=== PATIENT | female | born 1995 | race Caucasian/White ===

== ENCOUNTER 2016-04-03 22:18 | Emergency (ER) | payer BC ==
[2016-04-03] MEDS ORDERED: Sodium Chloride 0.9% 1000 ML 1,000 ML IV STA (23:46)
[2016-04-03] MEDS ORDERED: Zofran 4 MG/2 ML VIAL IV ONE (23:47)
--- NOTE | 2016-04-03 23:50 | ERPHSYRPT ---
- History of Present Illness Time Seen by Provider: 04/03/16 23:42 Historian: patient Exam Limitations: no limitations Patient Subjective Stated Complaint: NVD X 2-3 DAYS - MALAISE - FEVER/CHILLS Triage Nursing Assessment: AMBULATORY TO TREATEMENT AREA - STEADY GAIT - MOVES ALL EXTREMITIES WITH EQUAL STRENGTH. ALERT/ORIENTED - APPROPRIATE AFFECT. SKIN FLUSHED/HOT/DRY - NO RASH/INJURY. RESPS EASY - NON-LABORED Physician History: This is a 21-year-old white female who arrives with complaint of multiple episodes of vomiting diarrhea symptoms going on for 1-1/2 days she denies fever she does state she's had a cough occasionally for approximately 3 weeks. Past medical history patient has had abnormal Pap smears in the past. Past surgical history cholecystectomy. Timing/Duration: day(s) (1-1/2 days) Activities at Onset: none Quality: other (no pain) Abdominal Pain Onset Location: other (no pain) Pain Radiation: no radiation Severity of Pain-Max: none Severity of Pain-Current: none Modifying Factors: Improves With: vomiting, other (vomiting and diarrhea) Associated Symptoms: diarrhea, nausea, vomiting, No back, No chest pain, No diaphoresis, No fever/chills, No fatigue, No headache, No heartburn, No loss of appetite, No neck pain, No rash, No shortness of breath, No syncope Allergies/Adverse Reactions: amoxicillin Allergy (Verified 04/03/16 23:09) Hx Tetanus, Diphtheria Vaccination/Date Given: Yes Hx Influenza Vaccination/Date Given: No Hx Pneumococcal Vaccination/Date Given: No Immunizations Up to Date: Yes - Review of Systems Constitutional: No Fever, No Chills Eyes: No Symptoms Ears, Nose, & Throat: No Symptoms, No Ear Pain, No Ear Discharge, No Hearing Changes, No Tinnitus, No Nose Pain, No Nose Congestion, No Nose Discharge, No Sinus Drainage, No Epistaxis, No Mouth Pain, No Mouth Swelling, No Loose Teeth, No Throat Pain, No Throat Swelling, No Hoarse, No Painful Swallowing, No Snoring , No Stridor Respiratory: Cough (occasional cough for 3 weeks) Cardiac: No Chest Pain, No Edema, No Syncope Abdominal/Gastrointestinal: Nausea, Vomiting, Diarrhea, No Abdominal Pain, No Constipation, No Hematemesis, No Hematochezia, No Melena, No Dysphagia, No Appetite Changes Genitourinary Symptoms: No Dysuria Musculoskeletal: No Back Pain, No Neck Pain Skin: No Rash Neurological: No Dizziness, No Focal Weakness, No Sensory Changes Psychological: No Symptoms Endocrine: No Symptoms All Other Systems: Reviewed and Negative - Past Medical History Pertinent Past Medical History: No - Past Surgical History Past Surgical History: Yes Gastrointestinal: Cholecystectomy - Social History Smoking Status: Never smoker Exposure to second hand smoke: No Drug Use: none Patient Lives Alone: No - Female History Hx Last Menstrual Period: JANUARY - Nursing Vital Signs Nursing Vital Signs: Initial Vital Signs Temperature 98.7 F Temperature Source Oral Pulse Rate 104 Respiratory Rate 14 Blood Pressure 140/79 Pain Intensity 4 - Physical Exam General Appearance: no apparent distress, alert Eye Exam: PERRL/EOMI, eyes nml inspection Ears, Nose, Throat Exam: normal ENT inspection, pharynx normal, moist mucous membranes Neck Exam: normal inspection, non-tender, supple, full range of motion Respiratory Exam: normal breath sounds, lungs clear, No respiratory distress Cardiovascular Exam: regular rate/rhythm, normal heart sounds Gastrointestinal/Abdomen Exam: soft, No tenderness, No mass Back Exam: normal inspection, normal range of motion, No CVA tenderness, No vertebral tenderness Extremity Exam: normal inspection, normal range of motion, pelvis stable Neurologic Exam: alert, oriented x 3, cooperative, normal mood/affect, nml cerebellar function, sensation nml, No motor deficits Skin Exam: normal color, warm, dry SpO2 Interpretation: normal (99%) SpO2: 99 Oxygen Delivery: Room Air Ordered Tests: Active Orders 24 hr Category Date Time Status IV Insertion STAT Care 04/03/16 23:46 Active AMYLASE Stat Lab 04/03/16 23:50 Completed CBC W DIFF Stat Lab 04/03/16 23:50 Completed CMP Stat Lab 04/03/16 23:50 Completed CULTURE, THROAT Stat Lab 04/03/16 23:55 Received HCG QUALITATIVE,SERUM Stat Lab 04/03/16 23:50 Completed INFLUENZA A+B Stat Lab 04/03/16 23:55 Completed LIPASE Stat Lab 04/03/16 23:50 Completed Manual Differential NC Stat Lab 04/03/16 23:50 Completed STREP SCREEN-BETA A Stat Lab 04/03/16 23:55 Completed UA W/ MICROSCOPIC Stat Lab 04/03/16 00:30 Completed Medication Summary Discontinued Medications Generic Name Dose Route Start Last Admin Trade Name Freq PRN Reason Stop Dose Admin Sodium Chloride 1,000 mls @ 999 mls/hr 04/03/16 23:46 04/03/16 23:58 Sodium Chloride 0.9% 1000 Ml IV 04/04/16 00:46 999 mls/hr .Q1H1M STA Administration Sodium Chloride Confirm 04/03/16 23:54 Sodium Chloride 0.9% 1000 Ml Administered 04/03/16 23:55 Dose 1,000 mls @ ud .ROUTE .STK-MED ONE Ondansetron HCl 4 mg 04/03/16 23:47 04/03/16 23:58 Zofran 4 Mg/2 Ml Vial IV 04/03/16 23:48 4 mg STAT ONE Administration Ondansetron HCl Confirm 04/03/16 23:54 Zofran 4 Mg/2 Ml Vial Administered 04/03/16 23:55 Dose 4 mg .ROUTE .STK-MED ONE Lab/Rad Data: Laboratory Result Diagrams 04/03/16 23:50 04/03/16 23:50 Laboratory Results 04/03/16 04/03/16 04/03/16 Range/Units 23:55 23:50 23:50 WBC (4.0-10.5) K/mm3 RBC (4.1-5.4) M/mm3 Hgb (12.0-16.0) gm/dl Hct (35-47) % MCV (78-100) fl MCH (26-32) pg MCHC (32-36) g/dl RDW (11.5-14.0) % Plt Count (150-450) K/mm3 MPV (6-9.5) fl Segmented Neutrophils (36.0-66.0) % Lymphocytes (Manual) (24-44) % Monocytes (Manual) (0.0-12.0) % Differential Comment Platelet Estimate (NORMAL) Sodium 141 (136-145) mEq/L Potassium 3.7 (3.5-5.1) mEq/L Chloride 105 (98-107) mEq/L Carbon Dioxide 19.3 L (21-32) mEq/L Anion Gap 20.5 H (5-15) MEQ/L BUN 17 (9-20) mg/dL Creatinine 1.04 (0.55-1.30) mg/dl Estimated GFR > 60 ML/MIN Glucose 127 H (70-110) MG/DL Calcium 9.6 (8.5-10.1) mg/dL Total Bilirubin 0.6 (0.2-1.0) mg/dL AST 21 (15-37) U/L ALT 38 (12-78) U/L Alkaline Phosphatase 95 (46-116) U/L Serum Total Protein 8.5 H (6.4-8.2) gm/dL Albumin 4.4 (3.4-5.0) g/dL Amylase 70 (25-115) U/L Lipase 120 (73-393) U/L Serum , Qual NEGATIVE (Negative) Ur Collection Type Urine Color (YELLOW) Urine Appearance (CLEAR) Urine pH (5-6) Ur Specific [place] (1.005-1.025) Urine Protein (Negative) Urine Glucose (UA) (NEGATIVE) mg/dL Urine Ketones (NEGATIVE) Urine Nitrite (NEGATIVE) Urine Bilirubin (NEGATIVE) Urine Urobilinogen (0-1) mg/dL Urine WBC (Auto) (NEGATIVE) Urine RBC (Auto) (0-5) Mac/ul Urine Microscopic RBC (0-2) /HPF Urine Microscopic WBC (0-5) /HPF Ur Epithelial Cells (FEW) /HPF Urine Bacteria (NEGATIVE) /HPF Influenza Type A Ag NEGATIVE (NEGATIVE) Influenza Type B Ag NEGATIVE (NEGATIVE) Streptococcus Screen NEGATIVE (Negative) Specimen Received 04/03/16 04/03/16 Range/Units 23:50 00:30 WBC 12.9 H (4.0-10.5) K/mm3 RBC 5.56 H (4.1-5.4) M/mm3 Hgb 16.4 H (12.0-16.0) gm/dl Hct 48.5 H (35-47) % MCV 87.2 (78-100) fl MCH 29.4 (26-32) pg MCHC 33.8 (32-36) g/dl RDW 13.8 (11.5-14.0) % Plt Count 217 (150-450) K/mm3 MPV 12.2 H (6-9.5) fl Segmented Neutrophils 92 H (36.0-66.0) % Lymphocytes (Manual) 6 L (24-44) % Monocytes (Manual) 2 (0.0-12.0) % Differential Comment NORMAL Platelet Estimate NORMAL (NORMAL) Sodium (136-145) mEq/L Potassium (3.5-5.1) mEq/L Chloride (98-107) mEq/L Carbon Dioxide (21-32) mEq/L Anion Gap (5-15) MEQ/L BUN (9-20) mg/dL Creatinine (0.55-1.30) mg/dl Estimated GFR ML/MIN Glucose (70-110) MG/DL Calcium (8.5-10.1) mg/dL Total Bilirubin (0.2-1.0) mg/dL AST (15-37) U/L ALT (12-78) U/L Alkaline Phosphatase (46-116) U/L Serum Total Protein (6.4-8.2) gm/dL Albumin (3.4-5.0) g/dL Amylase (25-115) U/L Lipase (73-393) U/L Serum , Qual (Negative) Ur Collection Type CLEAN CATCH Urine Color YELLOW (YELLOW) Urine Appearance CLEAR (CLEAR) Urine pH 5.5 (5-6) Ur Specific [place] >=1.030 (1.005-1.025) Urine Protein 30 (Negative) Urine Glucose (UA) NEGATIVE (NEGATIVE) mg/dL Urine Ketones NEGATIVE (NEGATIVE) Urine Nitrite NEGATIVE (NEGATIVE) Urine Bilirubin NEGATIVE (NEGATIVE) Urine Urobilinogen 0.2 (0-1) mg/dL Urine WBC (Auto) NEGATIVE (NEGATIVE) Urine RBC (Auto) TRACE-INTACT (0-5) Mac/ul Urine Microscopic RBC 0-2 (0-2) /HPF Urine Microscopic WBC 0-2 (0-5) /HPF Ur Epithelial Cells FEW (FEW) /HPF Urine Bacteria RARE (NEGATIVE) /HPF Influenza Type A Ag (NEGATIVE) Influenza Type B Ag (NEGATIVE) Streptococcus Screen (Negative) Specimen Received 04/04/16 0030 - Progress Progress: improved Progress Note: 04/04/16 01:19 Patient feeling better. Patient with increased white count and left shift however abdomen is nontender. Labs otherwise essentially normal. Will discharge patient with Zofran. - Departure Time of Disposition: 01:20 Departure Disposition: Home Clinical Impression: Vomiting and diarrhea, Gastroenteritis Condition: Fair Critical Care Time: No Instructions: Vomiting -- Adult, Diarrhea and Traveler's Diarrhea -- Adult Additional Instructions: Return home. Plenty of fluids. Clear fluids only 24-48 hours. Zofran 4 mg orally every 4-6 hours as needed for nausea and vomiting. Follow-up with your family Dr. symptoms are worse, no better in 24-48 hours, or persist longer 72 hours. Return for acute distress or for severe symptoms. Prescriptions: Ondansetron [Zofran Odt] 4 mg PO Q4-6HPRN PRN #10 tab.rapdis PRN Reason: nausea and vomiting
[2016-04-03 23:54] LABS: Mean Cell Volume 87.2 fl (78-100); Mean Platelet Volume 12.2 fl (6-9.5); Platelet Count 217 K/mm3 (150-450); Red Blood Count 5.56 M/mm3 (4.1-5.4); Red Cell Distribution Width 13.8 % (11.5-14.0); White Blood Count 12.9 K/mm3 (4.0-10.5)
[2016-04-03] MEDS ORDERED: Zofran 4 MG/2 ML VIAL ONE (23:54)
[2016-04-03] MEDS ORDERED: Sodium Chloride 0.9% 1000 ML 1,000 ML ONE (23:54)
[2016-04-03 23:56] LABS: Mean Corpuscular Hemoglobin 29.4 pg (26-32)
[2016-04-04 00:22] LABS: ALBUMIN 4.4 g/dL (3.4-5.0); ALKALINE PHOSPHATASE 95 U/L (46-116); ANION GAP 20.5 MEQ/L (5-15); BILIRUBIN,TOTAL 0.6 mg/dL (0.2-1.0); BLOOD UREA NITROGEN 17 mg/dL (9-20); CHLORIDE 105 mEq/L (98-107); Carbon Dioxide 19.3 mEq/L (21-32); Glucose 127 MG/DL (70-110); LIPASE 120 U/L (73-393); Potassium 3.7 mEq/L (3.5-5.1); SGOT/AST 21 U/L (15-37); SGPT/ALT 38 U/L (12-78); SODIUM 141 mEq/L (136-145); Total Protein 8.5 gm/dL (6.4-8.2)
[2016-04-04 00:38] LABS: Total Cells Counted 100
[2016-04-04 00:39] LABS: Platelet Estimate NORMAL (NORMAL)
[2016-04-04 01:07] LABS: COMPLETE URINE MICROSCOPIC? YES; Collection Type CLEAN CATCH; Ph 5.5 (5-6)
[2016-04-04 01:08] LABS: Bacteria RARE /HPF (NEGATIVE); Epithelial Cells FEW /HPF (FEW); WBC 0-2 /HPF (0-5)
[2016-04-04] MEDS ORDERED: ZOFRAN ODT 4 MG PO ONE (01:22)
[2016-04-04] MEDS ORDERED: ZOFRAN ODT 4 MG ONE (01:28)
[2016-04-04 01:44] VITALS: BP 120/80; PULSE 78; O2SAT 100
== END 2016-04-04 01:41 | disposition home or self-care (01) ==
LOC: ED 22:18
DX: R11.2 Nausea with vomiting, unspecified (principal); R19.7 Diarrhea, unspecified
CPT/HCPCS: 36000; 36415; 80053; 81000; 82150; 83690; 84703; 85025; 87070; 87400; 87430; 96374; 99283; J2405; Q0162

== ENCOUNTER 2016-05-22 17:23 | Emergency (ER) | payer BC | END 2016-05-22 18:45 | disposition left against medical advice (07) | LOC: ED 17:23 | DX: Z53.9 Procedure and treatment not carried out, unspecified reason (principal) ==

== ENCOUNTER 2017-03-02 19:59 | Emergency (ER) | payer BC ==
[2017-03-02 20:32] LABS: BASOPHIL % 0.2 % (0.0-0.4); Eosinophil % 2.8 % (0.00-5.0); Granulocytes % 64.3 % (36.0-66.0); Lymphocytes % 25.6 % (24.0-44.0); Mean Corpuscular Hemoglobin 29.9 pg (26-32); Mean Platelet Volume 12.2 fl (6-9.5); Monocytes % 7.1 % (0.0-12.0); Platelet Count 225 K/mm3 (150-450); Red Blood Count 4.38 M/mm3 (4.1-5.4); Red Cell Distribution Width 13.3 % (11.5-14.0); White Blood Count 10.8 K/mm3 (4.0-10.5)
[2017-03-02 20:55] LABS: ADD URINE CULTURE? NO (NO); Bilirubin NEGATIVE (NEGATIVE); Blood NEGATIVE Ery/ul (0-5); COMPLETE URINE MICROSCOPIC? NO; Collection Type CCMS; Glucose NEGATIVE (NEGATIVE); Leukocyte Esterase NEGATIVE (NEGATIVE)
[2017-03-02 21:18] LABS: ALBUMIN 3.4 g/dL (3.4-5.0); ALKALINE PHOSPHATASE 74 U/L (46-116); ANION GAP 14.5 MEQ/L (5-15); BLOOD UREA NITROGEN 13 mg/dL (9-20); CHLORIDE 103 mEq/L (98-107); Carbon Dioxide 24.4 mEq/L (21-32); Glucose 102 MG/DL (70-110); HCG, Quantitative (Inhouse) 29017 IU/L (0-6); Potassium 3.4 mEq/L (3.5-5.1); SGOT/AST 13 U/L (15-37); SGPT/ALT 23 U/L (12-78); SODIUM 139 mEq/L (136-145); Total Protein 7.2 gm/dL (6.4-8.2)
--- NOTE | 2017-03-02 21:40 | ERPHSYRPT ---
- History of Present Illness Time Seen by Provider: 03/02/17 20:02 Source: patient Patient Subjective Stated Complaint: and cramping Triage Nursing Assessment: states and cramping Physician History: CC: abd cramping Hx: 22 y/o patient planning to see Dr Madden for OB. She is early pregnany. Some lower abd cramping today at work. No vaginal bleeding. Normal urination. Mild discharge. No fever. No N/V. All: Amoxil ? 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 [employer] Timing/Duration: today Allergies/Adverse Reactions: amoxicillin Allergy (Verified 05/24/16 01:34) Hx Tetanus, Diphtheria Vaccination/Date Given: Yes Hx Influenza Vaccination/Date Given: No Hx Pneumococcal Vaccination/Date Given: No - Review of Systems Constitutional: No Fever, No Chills Eyes: No Symptoms Ears, Nose, & Throat: No Symptoms Abdominal/Gastrointestinal: Nausea, Vomiting, No Abdominal Pain Genitourinary Symptoms: , Vaginal Discharge (mild), No Dysuria, No Vaginal Bleeding Musculoskeletal: No Back Pain Skin: No Rash Neurological: No Dizziness, No Focal Weakness, No Parasthesia All Other Systems: Reviewed and Negative - Past Medical History Pertinent Past Medical History: Yes - Past Surgical History Past Surgical History: Yes Gastrointestinal: Cholecystectomy - Social History Smoking Status: Never smoker Exposure to second hand smoke: No Drug Use: none Patient Lives Alone: No - Female History Hx Last Menstrual Period: Hx Now: Yes - Nursing Vital Signs Nursing Vital Signs: Initial Vital Signs Temperature 97.9 F 03/02/17 20:28 Pulse Rate 74 03/02/17 20:28 Respiratory Rate 22 03/02/17 20:28 Blood Pressure 121/59 03/02/17 20:28 O2 Sat by Pulse Oximetry 100 03/02/17 20:28 Pain Scale Pain Intensity 5 - Physical Exam General Appearance: alert Eye Exam: PERRL/EOMI Ears, Nose, Throat Exam: normal ENT inspection, moist mucous membranes Neck Exam: normal inspection, non-tender, supple Respiratory Exam: normal breath sounds Cardiovascular Exam: regular rate/rhythm Gastrointestinal/Abdomen Exam: soft, No tenderness, No distention Pelvic Exam: normal external exam, vaginal discharge (mild white, friable cervix , closed) Back Exam: normal inspection Extremity Exam: normal inspection, normal range of motion Neurologic Exam: alert, oriented x 3, cooperative, sensation nml, No motor deficits Skin Exam: warm, dry, No rash SpO2 Interpretation: normal SpO2: 100 Oxygen Delivery: Room Air Procedures - Limited OB Ultrasound Indicators: rule out ectopic Results: + IUP Progress: Transabdominal sonogram per ERMD for abdominal cramping. Single live IUP with FHR 174. AUA 8 + 6 weeks. - Course Nursing assessment & vital signs reviewed: Yes Ordered Tests: Active Orders 24 hr Category Date Time Status Cath for Specimen-Straight STAT Care 03/02/17 20:08 Active Gown/Disrobe Pt STAT Care 03/02/17 20:07 Active IV Insertion STAT Care 03/02/17 20:07 Active Pelvic Exam Assist STAT Care 03/02/17 20:07 Active CBC W DIFF Stat Lab 03/02/17 20:20 Completed CMP Stat Lab 03/02/17 20:20 Completed HCG, Quantitative (Inhouse) Stat Lab 03/02/17 20:20 Completed UA W/RFX UR CULTURE Stat Lab 03/02/17 20:20 Completed Wet Prep Stat Lab 03/02/17 21:40 Completed Lab/Rad Data: Laboratory Result Diagrams 03/02/17 20:20 03/02/17 20:20 Laboratory Results 03/02/17 03/02/17 03/02/17 Range/Units 21:40 20:20 20:20 WBC (4.0-10.5) K/mm3 RBC (4.1-5.4) M/mm3 Hgb (12.0-16.0) gm/dl Hct (35-47) % MCV (78-100) fl MCH (26-32) pg MCHC (32-36) g/dl RDW (11.5-14.0) % Plt Count (150-450) K/mm3 MPV (6-9.5) fl Gran % (36.0-66.0) % Lymphocytes % (24.0-44.0) % Monocytes % (0.0-12.0) % Eosinophils % (0.00-5.0) % Basophils % (0.0-0.4) % Basophils # (0-0.4) Sodium 139 (136-145) mEq/L Potassium 3.4 L (3.5-5.1) mEq/L Chloride 103 (98-107) mEq/L Carbon Dioxide 24.4 (21-32) mEq/L Anion Gap 14.5 (5-15) MEQ/L BUN 13 (9-20) mg/dL Creatinine 0.91 (0.55-1.30) mg/dl Estimated GFR > 60 ML/MIN Glucose 102 (70-110) MG/DL Calcium 9.1 (8.5-10.1) mg/dL Total Bilirubin 0.10 L (0.2-1.0) mg/dL AST 13 L (15-37) U/L ALT 23 (12-78) U/L Alkaline Phosphatase 74 (46-116) U/L Serum Total Protein 7.2 (6.4-8.2) gm/dL Albumin 3.4 (3.4-5.0) g/dL Beta HCG, Quant 78398 H (0-6) IU/L Ur Collection Type Urine Color (YELLOW) Urine Appearance (CLEAR) Urine pH (5-6) Ur Specific [place] (1.005-1.025) Urine Protein (Negative) Urine Ketones (NEGATIVE) Urine Blood (0-5) Mac/ul Urine Nitrite (NEGATIVE) Urine Bilirubin (NEGATIVE) Urine Urobilinogen (0-1) mg/dL Ur Leukocyte Esterase (NEGATIVE) Urine Culture Reflexed (NO) Urine Glucose (NEGATIVE) mg/dL WBC (Wet Prep) Few RBC (Wet Prep) Rare Epi Cells (Wet Prep) Moderate Bacteria (Wet Prep) Many Clue Cells (Wet Prep) Rare Trichomonas (Wet Prep) None Seen Budding Yeast (Wet Prp) None Seen Specimen Received ABO Group O Rh Factor POSITIVE Antibody Screen NEGATIVE (NEGATIVE) 03/02/17 03/02/17 Range/Units 20:20 20:20 WBC 10.8 H (4.0-10.5) K/mm3 RBC 4.38 (4.1-5.4) M/mm3 Hgb 13.1 (12.0-16.0) gm/dl Hct 39.0 (35-47) % MCV 89.0 (78-100) fl MCH 29.9 (26-32) pg MCHC 33.6 (32-36) g/dl RDW 13.3 (11.5-14.0) % Plt Count 225 (150-450) K/mm3 MPV 12.2 H (6-9.5) fl Gran % 64.3 (36.0-66.0) % Lymphocytes % 25.6 (24.0-44.0) % Monocytes % 7.1 (0.0-12.0) % Eosinophils % 2.8 (0.00-5.0) % Basophils % 0.2 (0.0-0.4) % Basophils # 0.02 (0-0.4) Sodium (136-145) mEq/L Potassium (3.5-5.1) mEq/L Chloride (98-107) mEq/L Carbon Dioxide (21-32) mEq/L Anion Gap (5-15) MEQ/L BUN (9-20) mg/dL Creatinine (0.55-1.30) mg/dl Estimated GFR ML/MIN Glucose (70-110) MG/DL Calcium (8.5-10.1) mg/dL Total Bilirubin (0.2-1.0) mg/dL AST (15-37) U/L ALT (12-78) U/L Alkaline Phosphatase (46-116) U/L Serum Total Protein (6.4-8.2) gm/dL Albumin (3.4-5.0) g/dL Beta HCG, Quant (0-6) IU/L Ur Collection Type CCMS Urine Color YELLOW (YELLOW) Urine Appearance CLEAR (CLEAR) Urine pH 5.0 (5-6) Ur Specific [place] 1.030 (1.005-1.025) Urine Protein NEGATIVE (Negative) Urine Ketones NEGATIVE (NEGATIVE) Urine Blood NEGATIVE (0-5) Mac/ul Urine Nitrite NEGATIVE (NEGATIVE) Urine Bilirubin NEGATIVE (NEGATIVE) Urine Urobilinogen NORMAL (0-1) mg/dL Ur Leukocyte Esterase NEGATIVE (NEGATIVE) Urine Culture Reflexed NO (NO) Urine Glucose NEGATIVE (NEGATIVE) mg/dL WBC (Wet Prep) RBC (Wet Prep) Epi Cells (Wet Prep) Bacteria (Wet Prep) Clue Cells (Wet Prep) Trichomonas (Wet Prep) Budding Yeast (Wet Prp) Specimen Received [id number] ABO Group Rh Factor Antibody Screen (NEGATIVE) - Progress Progress Note: 03/02/17 21:40 She has IUP. No bleeding. Discussed miscarriage precautions. She plans to follow up with Dr Madden. Counseled pt/family regarding: lab results, diagnosis, need for follow-up, rad results - Departure Time of Disposition: 22:03 Departure Disposition: Home Clinical Impression: Pelvic cramping in antepartum period, 8 weeks gestation of Condition: Stable Critical Care Time: No Referrals: MATT MADDEN [NON-STAFF PHY W/O PRIVILEGES] - Instructions: Threatened , -- Discomforts and Remedies, Abdominal Pain -- Early Additional Instructions: Follow up with Dr Madden. Drink plenty of fluids.
[2017-03-02 21:50] LABS: Bacteria Many; Clue Cells Rare; Trichomonas None Seen
[2017-03-02 21:51] LABS: Yeast None Seen
[2017-03-02 22:15] VITALS: BP 120/67; PULSE 87; O2SAT 97
[2017-03-02 23:18] LABS: CHLAMYDIA DNA NEGATIVE
== END 2017-03-02 22:14 | disposition home or self-care (01) ==
LOC: ED 19:59
DX: O26.891 Other specified pregnancy related conditions, first trimester (principal); Z3A.08 8 weeks gestation of pregnancy
CPT/HCPCS: 36000; 36415; 76815; 80053; 81002; 84702; 85025; 86850; 86900; 86901; 87210; 87490; 87590; 96360; 99284; P9612

== ENCOUNTER 2017-03-19 21:52 | Emergency (ER) | payer BC ==
[2017-03-19] MEDS ORDERED: Augmentin 875-125 Tablet PO ONE (22:05)
[2017-03-19] MEDS ORDERED: BACIGUENT PACKET TP ONE (22:05)
[2017-03-19] MEDS ORDERED: BACIGUENT PACKET ONE (22:07)
--- NOTE | 2017-03-19 22:09 | ERPHSYRPT ---
- History of Present Illness Time Seen by Provider: 03/19/17 22:00 Source: patient Exam Limitations: no limitations Patient Subjective Stated Complaint: cat bite with scratches that happened [employer]; pt states she is , bite to left hand, scratches to bilat forearms and stomach Triage Nursing Assessment: bite imani to left thumb area with bleeding controlled , bilat forearm scratches with bleeding controlled and stomach scratches with bleeding controlled. Physician History: 22 y/o female who is 13 weeks comes to the ER after being scratched and bit on her left hand and wrist just prior to arrival. Pt arrives with a scratch across the lateral surface of her left wrist and a bite imani on the back of the thumb. Minimal bleeding. Patient last had her immunizations at age 5 and the cat is 6 months late for her rabies shot. Timing/Duration: today Quality: burning Severity: mild Location: extremities Possible Causes: other (cat bite and scratch) Associated Symptoms: denies symptoms Allergies/Adverse Reactions: No Known Drug Allergies Allergy (Unverified 03/19/17 22:17) Hx Tetanus, Diphtheria Vaccination/Date Given: Yes Hx Influenza Vaccination/Date Given: No Hx Pneumococcal Vaccination/Date Given: No - Review of Systems Constitutional: No Fever, No Chills Eyes: No Symptoms Ears, Nose, & Throat: No Symptoms Respiratory: No Cough, No Dyspnea Cardiac: No Chest Pain, No Edema, No Syncope Abdominal/Gastrointestinal: No Abdominal Pain, No Nausea, No Vomiting, No Diarrhea Genitourinary Symptoms: No Dysuria Musculoskeletal: No Back Pain, No Neck Pain Skin: Other (puncture wound and scratch on left hand), No Rash Neurological: No Dizziness, No Focal Weakness, No Sensory Changes Psychological: No Symptoms Endocrine: No Symptoms All Other Systems: Reviewed and Negative - Past Medical History Pertinent Past Medical History: Yes - Past Surgical History Past Surgical History: Yes Gastrointestinal: Cholecystectomy - Social History Smoking Status: Never smoker Exposure to second hand smoke: No Drug Use: none Patient Lives Alone: No - Female History Hx Now: Yes - Nursing Vital Signs Nursing Vital Signs: Initial Vital Signs Temperature 98.1 F 03/19/17 21:58 Respiratory Rate 20 03/19/17 21:58 Blood Pressure 138/108 03/19/17 21:58 O2 Sat by Pulse Oximetry 98 03/19/17 21:58 Pain Scale Pain Intensity 2 - Physical Exam General Appearance: no apparent distress, alert Eye Exam: PERRL/EOMI, eyes nml inspection Ears, Nose, Throat Exam: normal ENT inspection, pharynx normal, moist mucous membranes Neck Exam: normal inspection, non-tender, supple, full range of motion Respiratory Exam: normal breath sounds, lungs clear, No respiratory distress Cardiovascular Exam: regular rate/rhythm, normal heart sounds Gastrointestinal/Abdomen Exam: soft, mass, No tenderness Back Exam: normal inspection, normal range of motion, No CVA tenderness, No vertebral tenderness Extremity Exam: normal inspection, normal range of motion Neurologic Exam: alert, oriented x 3, cooperative, normal mood/affect, sensation nml, No motor deficits Skin Exam: normal color, warm, dry, other (puncture wound and scratch on left hand) SpO2: 98 Oxygen Delivery: Room Air - Course Nursing assessment & vital signs reviewed: Yes Ordered Tests: Medication Summary Discontinued Medications Generic Name Dose Route Start Last Admin Trade Name Freq PRN Reason Stop Dose Admin Amoxicillin/Clavulanate Potassium 875 mg 03/19/17 22:05 03/19/17 22:22 Augmentin 875-125 Tablet PO 03/19/17 22:06 875 mg STAT ONE Administration Amoxicillin/Clavulanate Potassium Confirm 03/19/17 22:15 Augmentin 875-125 Tablet Administered 03/19/17 22:16 Dose 875 mg .ROUTE .STK-MED ONE Bacitracin 0.9 gm 03/19/17 22:05 03/19/17 22:14 Baciguent Packet TP 03/19/17 22:06 0.9 gm STAT ONE Administration Bacitracin Confirm 03/19/17 22:07 Baciguent Packet Administered 03/19/17 22:08 Dose 2 gm .ROUTE .STK-MED ONE - Progress Progress: improved Progress Note: 03/19/17 22:50 The wound was cleaned with soap and water as well as bacitracin was placed. As per OB, the patient will receive her TDap at 28 weeks and the patient will continue on augmentin for 10 days. Pt will also F/U with her OB doctor. 03/19/17 22:51 - Departure Time of Disposition: 22:52 Departure Disposition: Home Clinical Impression: Cat bite Qualifiers: Encounter type: initial encounter Qualified Code(s): W55.01XA - Bitten by cat, initial encounter Condition: Stable Critical Care Time: No Referrals: DELROY DAO BURN NURSE [Primary Care Provider] - Instructions: Animal Bites Additional Instructions: Follow up with your OB doctor in the next 2-3 days for further recommendations. Do not change the litter for your cat. Finish the antibiotics until completion. Prescriptions: Amoxicillin/Potassium Clav [Augmentin 875-125 Tablet] 1 each PO BID 10 Days #19 tablet
[2017-03-19] MEDS ORDERED: Augmentin 875-125 Tablet ONE (22:15)
[2017-03-19 23:39] VITALS: BP 123/69; PULSE 99; O2SAT 100
== END 2017-03-19 23:30 | disposition home or self-care (01) ==
LOC: ED 21:52
DX: S61.452A Open bite of left hand, initial encounter (principal); W55.01XA Bitten by cat, initial encounter; S50.812A Abrasion of left forearm, initial encounter; S50.811A Abrasion of right forearm, initial encounter; S30.811A Abrasion of abdominal wall, initial encounter; W55.03XA Scratched by cat, initial encounter
CPT/HCPCS: 99283; A9270-GY

== ENCOUNTER 2017-07-05 23:08 | Observation (INO) | payer BC, MEDICAID ==
[2017-07-06 00:17] VITALS: BP 140/71; PULSE 84
[2017-07-06 00:56] LABS: Amphetamine,Urine NEGATIVE (NEGATIVE); Barbiturate,Urine NEGATIVE (NEGATIVE); Benzodiazepine,Urine NEGATIVE (NEGATIVE); Cocaine,Urine NEGATIVE (NEGATIVE); Methadone,Urine NEGATIVE (NEGATIVE); Opiate,Urine NEGATIVE (NEGATIVE); PCP,Urine NEGATIVE (NEGATIVE); THC,Urine NEGATIVE (NEGATIVE)
[2017-07-06 01:06] LABS: Appearance CLEAR (CLEAR)
[2017-07-06 01:08] LABS: Bilirubin NEGATIVE (NEGATIVE); Blood NEGATIVE Ery/ul (0-5); Glucose 250 mg/dL (NEGATIVE); Ketones NEGATIVE (NEGATIVE); Leukocyte Esterase NEGATIVE (NEGATIVE); Nitrite NEGATIVE (NEGATIVE); Protein,Urine Dip NEGATIVE (Negative); Specific Gravity 1.025 (1.005-1.025); Urobilinogen NORMAL mg/dL (0-1)
== END 2017-07-06 01:40 | disposition home or self-care (01) ==
LOC: UNDOADMOB 23:08 → OB 23:08 → UNDODISOB 07-06 01:40
PROVIDERS: ADMIT Family Medicine; ATTEND Family Medicine
DX: Z34.83 Encounter for supervision of other normal pregnancy, third trimester (principal)
CPT/HCPCS: 80307; 81002; G0378

== ENCOUNTER 2017-07-23 22:55 | Observation (INO) | payer BC, MEDICAID ==
[2017-07-23] MEDS ORDERED: Sodium Chloride 0.9% 1000 ML 2,000 ML ONE (23:33)
[2017-07-23] MEDS ORDERED: Phenergan 25 MG INJ IV ONE (23:41)
[2017-07-23] MEDS ORDERED: Sodium Chloride 0.9% 1000 ML 1,000 ML IV STA (23:41)
--- NOTE | 2017-07-23 23:47 | ERPHSYRPT ---
- History of Present Illness Time Seen by Provider: 07/23/17 23:41 Source: patient, family Exam Limitations: no limitations Patient Subjective Stated Complaint: vomiting and diarrhea since this morning Triage Nursing Assessment: Pt A&O x3, bowel sounds in all quadrants, started having vomiting and diarrhea since this morning approximately every 30 minutes, pulses normal, vitals wnl, hasn't urinated since around 1300 Physician History: The patient is a 22-year-old at 31 weeks female with her complaining of nausea, vomiting, and diarrhea all day since 7 AM this morning. She has cramping in her abdomen. She has no local doctor nor does she have a local OB doctor. She has a negative past medical history. She is not lightheaded. Timing/Duration: today Severity: severe Modifying Factors: Improves With: nothing Associated Symptoms: nausea, vomiting, abdominal pain (cramping) Allergies/Adverse Reactions: amoxicillin Adverse Reaction (Verified 07/23/17 23:17) Home Medications: No Reportable Medications [No Reported Medications] 07/06/17 [History] Hx Tetanus, Diphtheria Vaccination/Date Given: Yes Hx Influenza Vaccination/Date Given: No Hx Pneumococcal Vaccination/Date Given: No - Review of Systems Constitutional: No Fever, No Chills Eyes: No Symptoms Ears, Nose, & Throat: No Symptoms Respiratory: No Cough, No Dyspnea Cardiac: No Chest Pain, No Edema, No Syncope Abdominal/Gastrointestinal: Nausea, Vomiting, Diarrhea Genitourinary Symptoms: No Dysuria Musculoskeletal: No Back Pain, No Neck Pain Skin: No Rash Neurological: No Dizziness, No Focal Weakness, No Sensory Changes Psychological: No Symptoms Endocrine: No Symptoms Hematologic/Lymphatic: No Symptoms Immunological/Allergic: No Symptoms All Other Systems: Reviewed and Negative - Past Medical History Pertinent Past Medical History: Yes GI Medical History: Gallbladder Disease - Past Surgical History Past Surgical History: Yes Gastrointestinal: Cholecystectomy - Social History Smoking Status: Current every day smoker Exposure to second hand smoke: Yes Drug Use: none Patient Lives Alone: No - Female History Hx Now: Yes Expected Date of Delivery: 09/25/17 - Nursing Vital Signs Nursing Vital Signs: Initial Vital Signs Temperature 97.3 F 07/23/17 23:06 Pulse Rate 72 07/23/17 23:06 Blood Pressure 145/79 07/23/17 23:06 O2 Sat by Pulse Oximetry 96 07/23/17 23:06 Pain Scale Pain Intensity 0 - Physical Exam General Appearance: mild distress Eye Exam: PERRL/EOMI, eyes nml inspection Ears, Nose, Throat Exam: normal ENT inspection, TMs normal, pharynx normal, moist mucous membranes Neck Exam: normal inspection, non-tender, supple, full range of motion Respiratory Exam: normal breath sounds, lungs clear, No respiratory distress Cardiovascular Exam: regular rate/rhythm, normal heart sounds, normal peripheral pulses Gastrointestinal/Abdomen Exam: other (obese) Pelvic Exam: not done Rectal Exam: not done Back Exam: normal inspection, normal range of motion, No CVA tenderness, No vertebral tenderness Extremity Exam: normal inspection, normal range of motion, pelvis stable Neurologic Exam: alert, oriented x 3, cooperative, normal mood/affect, nml cerebellar function, nml station & gait, sensation nml, No motor deficits Skin Exam: normal color, warm, dry, No rash Lymphatic Exam: No adenopathy SpO2 Interpretation: normal SpO2: 96 Oxygen Delivery: Room Air Ordered Tests: Active Orders 24 hr Category Date Time Status Heart Tones-ED STAT Care 07/23/17 23:42 Active IV Insertion STAT Care 07/23/17 23:41 Active BMP Stat Lab 07/23/17 23:15 Received CBC W DIFF Stat Lab 07/23/17 23:15 Completed Lactic Acid Stat Lab 07/23/17 23:45 Completed Medication Summary Generic Name Dose Route Start Last Admin Trade Name Freq PRN Reason Stop Dose Admin Sodium Chloride 1,000 mls @ 999 mls/hr 07/23/17 23:41 07/23/17 23:51 Sodium Chloride 0.9% 1000 Ml IV 07/24/17 00:41 999 mls/hr .Q1H1M STA Administration Discontinued Medications Generic Name Dose Route Start Last Admin Trade Name Freq PRN Reason Stop Dose Admin Sodium Chloride Confirm 07/23/17 23:33 Sodium Chloride 0.9% 1000 Ml Administered 07/23/17 23:34 Dose 1,000 mls @ ud .ROUTE .STK-MED ONE Promethazine HCl 25 mg 07/23/17 23:41 07/23/17 23:51 Phenergan 25 Mg Inj IV 07/23/17 23:42 25 mg STAT ONE Administration Promethazine HCl Confirm 07/23/17 23:50 Phenergan 25 Mg Inj Administered 07/23/17 23:51 Dose 25 mg .ROUTE .STK-MED ONE Lab/Rad Data: Laboratory Result Diagrams 07/23/17 23:15 Laboratory Results 07/23/17 07/23/17 Range/Units 23:45 23:15 WBC 15.4 H (4.0-10.5) K/mm3 RBC 4.44 (4.1-5.4) M/mm3 Hgb 13.5 (12.0-16.0) gm/dl Hct 39.1 (35-47) % MCV 88.1 (78-100) fl MCH 30.4 (26-32) pg MCHC 34.5 (32-36) g/dl RDW 13.4 (11.5-14.0) % Plt Count 227 (150-450) K/mm3 MPV 12.2 H (6-9.5) fl Gran % 91.3 H (36.0-66.0) % Eos # (Auto) 0.05 (0-0.5) Absolute Lymphs (auto) 0.73 L (1.0-4.6) Absolute Monos (auto) 0.54 (0.0-1.3) Lymphocytes % 4.8 L (24.0-44.0) % Monocytes % 3.5 (0.0-12.0) % Eosinophils % 0.3 (0.00-5.0) % Basophils % 0.1 (0.0-0.4) % Absolute Granulocytes 14.02 H (1.4-6.9) Basophils # 0.02 (0-0.4) Lactic Acid 1.5 (0.4-2.0) - Progress Progress: improved Progress Note: 07/24/17 00:14 FHT are 168 bpm. Discussed with : Mana Will see patient in: hospital (observation) Counseled pt/family regarding: lab results, diagnosis - Departure Time of Disposition: 00:14 Departure Disposition: Observation (per Dr Adair) Clinical Impression: Gastroenteritis Condition: Stable Critical Care Time: No Referrals: MATT MADDEN [Primary Care Provider] -
[2017-07-23] MEDS ORDERED: Phenergan 25 MG INJ ONE (23:50)
[2017-07-23 23:55] LABS: BASOPHIL % 0.1 % (0.0-0.4); Basophil (Absolute #) 0.02 (0-0.4); Eosinophil % 0.3 % (0.00-5.0); Eosinophil (Absolute #) 0.05 (0-0.5); Granulocyte Absolute (ANC) 14.02 (1.4-6.9); Granulocytes % 91.3 % (36.0-66.0); Hematocrit 39.1 % (35-47); Hemoglobin 13.5 gm/dl (12.0-16.0); Lymphocyte (Absolute #) 0.73 (1.0-4.6); Lymphocytes % 4.8 % (24.0-44.0); Mean Cell Volume 88.1 fl (78-100); Mean Corpuscular Hemoglobin 30.4 pg (26-32); Mean Corpuscular Hgb Concent. 34.5 g/dl (32-36); Mean Platelet Volume 12.2 fl (6-9.5); Monocyte (Absolute #) 0.54 (0.0-1.3); Monocytes % 3.5 % (0.0-12.0); Platelet Count 227 K/mm3 (150-450); Red Blood Count 4.44 M/mm3 (4.1-5.4); Red Cell Distribution Width 13.4 % (11.5-14.0); White Blood Count 15.4 K/mm3 (4.0-10.5)
[2017-07-24 00:19] LABS: ANION GAP 16.2 MEQ/L (5-15); BLOOD UREA NITROGEN 12 mg/dL (7-17); CHLORIDE 106 mmol/L (98-107); Calcium 9.9 mg/dL (8.4-10.2); Carbon Dioxide 18 mmol/L (22-30); Creatinine 1 0.49 mg/dL (0.52-1.04); Glucose 94 mg/dL (74-106); Potassium 3.6 mmol/L (3.5-5.1); SODIUM 136 mmol/L (137-145)
[2017-07-24] MEDS ORDERED: TYLENOL 325 MG PO PRN (01:02)
[2017-07-24] MEDS ORDERED: Phenergan 25 MG INJ IV PRN (01:02)
[2017-07-24] MEDS: Sodium Chloride 0.9% 1000 ML 1,000 ML IV SCH ×2 (01:13→09:48)
[2017-07-24 05:57] LABS: BASOPHIL % 0.2 % (0.0-0.4); Basophil (Absolute #) 0.02 (0-0.4); Eosinophil % 0.5 % (0.00-5.0); Eosinophil (Absolute #) 0.06 (0-0.5); Granulocyte Absolute (ANC) 10.83 (1.4-6.9); Hematocrit 34.9 % (35-47); Hemoglobin 11.8 gm/dl (12.0-16.0); Lymphocytes % 7.2 % (24.0-44.0); Mean Cell Volume 89.3 fl (78-100); Mean Corpuscular Hgb Concent. 33.8 g/dl (32-36); Mean Platelet Volume 11.9 fl (6-9.5); Monocyte (Absolute #) 0.64 (0.0-1.3); Monocytes % 5.1 % (0.0-12.0); Platelet Count 223 K/mm3 (150-450); Red Blood Count 3.91 M/mm3 (4.1-5.4); Red Cell Distribution Width 13.4 % (11.5-14.0); White Blood Count 12.5 K/mm3 (4.0-10.5)
[2017-07-24 06:09] LABS: Mean Corpuscular Hemoglobin 30.1 pg (26-32)
[2017-07-24 06:17] LABS: ANION GAP 12.9 MEQ/L (5-15); BLOOD UREA NITROGEN 10 mg/dL (7-17); CHLORIDE 106 mmol/L (98-107); Calcium 9.2 mg/dL (8.4-10.2); Carbon Dioxide 18 mmol/L (22-30); Glucose 87 mg/dL (74-106); Potassium 3.4 mmol/L (3.5-5.1); SODIUM 133 mmol/L (137-145)
[2017-07-24] MEDS ORDERED: Lactated Ringers 1,000 ML IV SCH (08:30)
--- NOTE | 2017-07-24 09:21 | PCM.SSS ---
History of Present Illness - Chief Complaint Chief Complaint: gastroenteritis History of Present Illness: is a 22 year old female pt of Dr. Madden, at 31 wk 2 d. She started having vomiting yesterday morning, then diarrhea started last night. She could not keep anything down and had a presyncopal episode so came to ER. Her CO2 was 18, and it is still 18 this morning. She does feel better this morning, has not vomited today. She has been awake about an hour and has had 2 episodes of diarrhea. No issues this . She did pass her OGTT but notes that Dr. Madden said her sugar was still high. States she's been getting regular care. FHT + here. - Review of Systems Abdominal/Gastrointestinal: Abdominal Pain (upper abd pain with vomiting), Nausea, Vomiting, Diarrhea Genitourinary Symptoms: Neurological: Other (presyncope) Medications & Allergies Home Medications: Home Medication List Vits W-Ca,Fe,FA(<1Mg) [] 1 each PO DAILY 07/24/17 [History Confirmed 07/24/17] Allergies/Adverse Reactions: Allergies Allergy/AdvReac Type Severity Reaction Status Date / Time amoxicillin AdvReac Verified 07/24/17 01:49 - Past Medical History Past Medical History: Yes GI Medical History: Gallbladder Disease Pyscho-Social History: Bipolar Comment: gallbladder has been removed. dx bipolar at 14 y.o. - Female History Are you now?: Yes Expected Date of Delivery: 09/25/17 - Past Surgical History Past Surgical History: Yes GI Surgical History: Cholecystectomy - Social History Smoking Status: Current every day smoker Exposure to second hand smoke: Yes Alcohol: None Drug Use: none - Physical Exam Vital Signs: Vital Signs - 24 hr Temp Pulse Resp BP Pulse Ox 07/24/17 07:18 98.6 F 96 H 20 120/56 95 07/24/17 04:10 98.2 F 89 18 118/57 98 07/24/17 01:23 98.6 F 93 H 20 135/63 98 07/24/17 00:40 96 07/24/17 00:40 74 16 127/79 99 07/23/17 23:06 97.3 F 72 145/79 96 General Appearance: no apparent distress, alert, obese Neurologic Exam: oriented x 3, cooperative, other (pat reflexes negligible bilat. no clonus bilat) Eye Exam: eyes nml inspection Ears, Nose, Throat Exam: moist mucous membranes Neck Exam: normal inspection, non-tender, No lymphadenopathy Respiratory Exam: normal breath sounds, lungs clear, No crackles/rales, No rhonchi, No wheezing Cardiovascular Exam: regular rate/rhythm, normal heart sounds, No murmur Gastrointestinal/Abdomen Exam: soft, other (gravid), No tenderness, No distention, No mass, No guarding, No rebound Back Exam: normal inspection, No rash Extremity Exam: normal inspection, No pedal edema, No swelling Skin Exam: normal color, warm, dry, No rash Results - Labs Lab/Micro Results: Lab Results-Last 24 Hours 07/24/17 07/24/17 Range/Units 05:22 05:22 WBC 12.5 H (4.0-10.5) K/mm3 RBC 3.91 L (4.1-5.4) M/mm3 Hgb 11.8 L (12.0-16.0) gm/dl Hct 34.9 L (35-47) % MCV 89.3 (78-100) fl MCH 30.1 (26-32) pg MCHC 33.8 (32-36) g/dl RDW 13.4 (11.5-14.0) % Plt Count 223 (150-450) K/mm3 MPV 11.9 H (6-9.5) fl Gran % 87.0 H (36.0-66.0) % Eos # (Auto) 0.06 (0-0.5) Absolute Lymphs (auto) 0.90 L (1.0-4.6) Absolute Monos (auto) 0.64 (0.0-1.3) Lymphocytes % 7.2 L (24.0-44.0) % Monocytes % 5.1 (0.0-12.0) % Eosinophils % 0.5 (0.00-5.0) % Basophils % 0.2 (0.0-0.4) % Absolute Granulocytes 10.83 H (1.4-6.9) Basophils # 0.02 (0-0.4) Sodium 133 L (137-145) mmol/L Potassium 3.4 L (3.5-5.1) mmol/L Chloride 106 (98-107) mmol/L Carbon Dioxide 18 L (22-30) mmol/L Anion Gap 12.9 (5-15) MEQ/L BUN 10 (7-17) mg/dL Creatinine 0.50 L (0.52-1.04) mg/dL Estimated GFR > 60.0 ML/MIN Glucose 87 (74-106) mg/dL Calcium 9.2 (8.4-10.2) mg/dL Assessment/Plan (1) Gastroenteritis Current Visit: Yes Status: Acute Assessment & Plan: Feeling better on IV fluids, but still has low CO2, will bolus another 1L LR. She is trying CLD this morning; if tolerates will advance her diet. If she's feeling much better and diarrhea slows, may be able to d/c tonight. Otherwise would keep on IVF another day. Code(s): K52.9 - NONINFECTIVE GASTROENTERITIS AND COLITIS, UNSPECIFIED (2) Current Visit: Yes Status: Acute Qualifiers: Weeks of gestation: 31 weeks Qualified Code(s): Z3A.31 - 31 weeks gestation of Assessment & Plan: Would like to see her hooked up to monitor 2x/d. Code(s): Z34.90 - ENCNTR FOR SUPRVSN OF NORMAL , UNSP, UNSP TRIMESTER Hospital Summary - Hospital Course Hospital Course: Pt at 31w 2d here with vomiting and diarrhea, appears to have gastroenteritis. Will continue monitoring baby twice daily, IVF, advance diet as tolerated. She's stopped vomiting, if diarrhea slows and she's feeling well will d/c tonight. May need to stay until morning if still having diarrhea. - Vitals & Intake/Output Vital Signs: Vital Signs Temperature 98.6 F 07/24/17 07:18 Pulse Rate 96 H 07/24/17 07:18 Respiratory Rate 20 07/24/17 07:18 Blood Pressure 120/56 07/24/17 07:18 O2 Sat by Pulse Oximetry 95 07/24/17 07:18 Intake & Output: Intake & Output 07/21/17 07/22/17 07/23/17 07/24/17 11:59 11:59 11:59 11:59 Intake Total 559 Output Total 200 Balance 359 Weight 116 kg - Lab Result Diagrams: 07/24/17 05:22 07/24/17 05:22 Lab Results-Last 24 Hrs: Lab Results-Last 24 Hours 07/24/17 07/24/17 Range/Units 05:22 05:22 WBC 12.5 H (4.0-10.5) K/mm3 RBC 3.91 L (4.1-5.4) M/mm3 Hgb 11.8 L (12.0-16.0) gm/dl Hct 34.9 L (35-47) % MCV 89.3 (78-100) fl MCH 30.1 (26-32) pg MCHC 33.8 (32-36) g/dl RDW 13.4 (11.5-14.0) % Plt Count 223 (150-450) K/mm3 MPV 11.9 H (6-9.5) fl Gran % 87.0 H (36.0-66.0) % Eos # (Auto) 0.06 (0-0.5) Absolute Lymphs (auto) 0.90 L (1.0-4.6) Absolute Monos (auto) 0.64 (0.0-1.3) Lymphocytes % 7.2 L (24.0-44.0) % Monocytes % 5.1 (0.0-12.0) % Eosinophils % 0.5 (0.00-5.0) % Basophils % 0.2 (0.0-0.4) % Absolute Granulocytes 10.83 H (1.4-6.9) Basophils # 0.02 (0-0.4) Sodium 133 L (137-145) mmol/L Potassium 3.4 L (3.5-5.1) mmol/L Chloride 106 (98-107) mmol/L Carbon Dioxide 18 L (22-30) mmol/L Anion Gap 12.9 (5-15) MEQ/L BUN 10 (7-17) mg/dL Creatinine 0.50 L (0.52-1.04) mg/dL Estimated GFR > 60.0 ML/MIN Glucose 87 (74-106) mg/dL Calcium 9.2 (8.4-10.2) mg/dL - Procedures and Test Procedures and Tests throughout Hospitalization: Therapy Orders & Screens 07/24/17 01:41 Smoking Cessation Education ONCE Comment: Diagnosis: gastroenteritis Smoking Status: Current every day smoker Approximately how many cigarettes per day: 1 ppd Do you dip or chew tobacco: No - Discharge Disposition: Home, Self-Care Condition: Stable Prescriptions: No Action Vits W-Ca,Fe,FA(<1Mg) [] 1 each PO DAILY Follow up with: MATT MADDEN [Primary Care Provider] - 1 Week
[2017-07-24] MEDS ORDERED: THERAGRAN MULTIVITAMIN PO SCH (10:00)
[2017-07-24 16:23] VITALS: BP 122/58; PULSE 72; O2SAT 99
== END 2017-07-24 18:40 | disposition home or self-care (01) ==
LOC: ED 22:55 → MED SURG 07-24 00:57
PROVIDERS: ADMIT Family Medicine; ATTEND Family Medicine
DX: K52.9 Noninfective gastroenteritis and colitis, unspecified (principal); Z34.90 Encounter for supervision of normal pregnancy, unspecified, unspecified trimester
CPT/HCPCS: 36000; 36415; 80048; 83605; 85025; 93268; 96360; 96374; 99284; 99285; J2550; G0378

== ENCOUNTER 2017-09-07 15:34 | Emergency (ER) | payer BC, OTHER ==
--- NOTE | 2017-09-07 16:15 | ERPHSYRPT ---
- History of Present Illness Time Seen by Provider: 09/07/17 16:09 Source: patient Exam Limitations: no limitations Patient Subjective Stated Complaint: Cyst Bleeding that was drained Monday. Triage Nursing Assessment: Cyst drained on Monday, no complaints until today. Pt states cyst is bleeding through clothes. Dr. Lamin Kim in [place] drained cyst on Monday. No distress noted, skin PWD. Pt is 37 weeks . Physician History: 22-year-old white female who states she is 37 weeks . Arrives with complaint of bleeding from a pilonidal cyst which was opened up by her MECHANICAL SERVICE TECHNICIAN physician Monday(Lamin Coleman). Patient states that she awoke this morning and noted a pool of blood underneath her sacral region. She states that she was losing through her dressing. She denies any other complaints she is not having any shortness of breath chest pain is not having any nausea or vomiting. Past medical history includes gallbladder disease, bipolar disorder. Past surgical history includes cholecystectomy. Timing/Duration: today Modifying Factors: Improves With: nothing Associated Symptoms: other (bleeding from lanced pilonidal cyst), No nausea, No vomiting, No abdominal pain, No shortness of breath, No heartburn, No diaphoresis, No cough, No chills, No chest pain, No fever, No headaches, No loss of appetite, No malaise, No rash, No syncope, No seizure, No weakness Allergies/Adverse Reactions: amoxicillin Adverse Reaction (Verified 07/24/17 01:49) Home Medications: Vits W-Ca,Fe,FA(<1Mg) [] 1 each PO DAILY 07/24/17 [History] Acyclovir [Acyclovir] 400 mg PO DAILY 09/07/17 [History] Sulfamethoxazole/Trimethoprim [Sulfamethoxazole-Tmp Ds Tablet] 1 tab PO BID 10/18 [History] Hx Tetanus, Diphtheria Vaccination/Date Given: Yes Hx Influenza Vaccination/Date Given: No Hx Pneumococcal Vaccination/Date Given: No Immunizations Up to Date: Yes - Review of Systems Constitutional: No Fever, No Chills Eyes: No Symptoms Ears, Nose, & Throat: No Symptoms Respiratory: No Cough, No Dyspnea Cardiac: No Chest Pain, No Edema, No Syncope Abdominal/Gastrointestinal: No Abdominal Pain, No Nausea, No Vomiting, No Diarrhea Genitourinary Symptoms: No Dysuria Musculoskeletal: No Symptoms, No Back Pain, No Neck Pain Skin: Other (bleeding from labs pilonidal cyst) Neurological: No Dizziness, No Focal Weakness, No Sensory Changes Psychological: No Symptoms Endocrine: No Symptoms All Other Systems: Reviewed and Negative - Past Medical History Pertinent Past Medical History: Yes GI Medical History: Gallbladder Disease Psycho-Social History: Bipolar Other Medical History: gallbladder has been removed. dx bipolar at 14 y.o. - Past Surgical History Past Surgical History: Yes Gastrointestinal: Cholecystectomy - Social History Smoking Status: Current every day smoker How long have you smoked: 3 years Exposure to second hand smoke: Yes Drug Use: none Patient Lives Alone: No - Female History Hx Now: Yes Expected Date of Delivery: 09/25/17 - Nursing Vital Signs Nursing Vital Signs: Initial Vital Signs Temperature 98.6 F 09/07/17 15:39 Pulse Rate 109 H 09/07/17 15:39 Respiratory Rate 16 09/07/17 15:39 Blood Pressure 145/93 09/07/17 15:39 O2 Sat by Pulse Oximetry 99 09/07/17 15:39 Pain Scale Pain Intensity 0 - Physical Exam General Appearance: no apparent distress, alert Eye Exam: PERRL/EOMI, eyes nml inspection Ears, Nose, Throat Exam: normal ENT inspection, TMs normal, pharynx normal, moist mucous membranes Neck Exam: normal inspection, non-tender, supple, full range of motion Respiratory Exam: normal breath sounds, lungs clear, No respiratory distress Cardiovascular Exam: regular rate/rhythm, normal heart sounds, normal peripheral pulses Gastrointestinal/Abdomen Exam: soft, normal bowel sounds, No tenderness, No mass Back Exam: normal inspection, normal range of motion, other (small opening less than 1 cm overlying pilonidal cyst with a small amount of from area), No CVA tenderness, No vertebral tenderness Extremity Exam: normal inspection, normal range of motion, pelvis stable Neurologic Exam: alert, oriented x 3, cooperative, 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 She states that she is having bleeding from a pilonidal cyst which was opened by her MECHANICAL SERVICE TECHNICIAN physician on Monday, September 04. She states that she woke up and noted a puddle of blood underneath her sacral area. Patient states that blood has been oozing through the dressing into her clothes. She is not dizzy she has no pain she is not short of breath no abdominal pain. On physical examination patient alert oriented 3 in no acute distress. HEENT unremarkable. Neck is supple lungs are clear heart is regular. Abdomen is gravid, nontender, heart tones 160 Extremities full range with pulse equal and symmetrical symmetrical 2 over 4. Neuro patient is alert oriented 3 cranial nerves II through XII are intact DTRs symmetrical equal 2/4 GCS 15. Patient with a small less than 1 cm opening overlying pilonidal cyst the dressing is in place this is removed there is a small amount of blood oozing out of the area . Area is cleansed by nurse and dressing is applied Patient is already on Bactrim provided to her by her MECHANICAL SERVICE TECHNICIAN physician. Patient is stable will discharge patient to follow-up with her family doctor. patient's initial blood pressure was 145/93 with heart rate of 109.. now blood pressure 141/87 heart rate 108. Patient has been working with her OB physician she states that is actually improving. Will discharge patient. The patient is to follow-up with her MECHANICAL SERVICE TECHNICIAN physician. 09/07/17 16:31 I did discuss the case with Dr. Lamin Norwood the patient's MECHANICAL SERVICE TECHNICIAN physician. He felt that the heart rate blood pressure were mildly a trace because of her anxiety of being in the emergency room she is already on Bactrim. He requested to have the patient follow-up with him as scheduled in the office sooner if any problems. . - Departure Time of Disposition: 16:22 Departure Disposition: Home Clinical Impression: bleeding from lanced pilonidal cyst, 37 weeks EGA (incidental) Condition: Fair Critical Care Time: No Referrals: DELROY DAO [facility] [Primary Care Provider] - Additional Instructions: Return home. Apply pressure if bleeding. Follow-up with your MECHANICAL SERVICE TECHNICIAN physician at regularly scheduled appointment, sooner if any problems. Return for acute distress or for severe symptoms.
[2017-09-07 16:19] VITALS: BP 141/87; PULSE 108
[2017-09-07 16:22] VITALS: O2SAT 99
== END 2017-09-07 16:53 | disposition home or self-care (01) ==
LOC: ED 15:34
DX: L76.22 Postprocedural hemorrhage of skin and subcutaneous tissue following other procedure (principal); Z33.1 Pregnant state, incidental
CPT/HCPCS: 99283